=== PATIENT | male | born 1975 | race Caucasian/White ===

== ENCOUNTER 2021-02-15 16:36 | Emergency (ER) | payer OTHER, SELFPAY ==
[2021-02-15 17:24] VITALS: BP 159/108; PULSE 85; RESP 18; TEMP 36.8; O2SAT 97
--- NOTE | 2021-02-15 18:27 | ED_ITS ---
HPI - Wound/Laceration General Chief Complaint: Extremity Injury, Upper Stated Complaint: left hand injury Time Seen by Provider: 02/15/21 18:12 Source: patient Mode of arrival: ambulatory Limitations: no limitations History of Present Illness HPI narrative: 45-year-old male presenting to the ED with complaints of a laceration to his left and index finger while he was handling a clothing rack and came down and hit his finger prior to arrival. He reports he is up-to-date on tetanus received his tetanus less than 5 years ago. Denies any other symptoms complaints or concerns at this time. Onset (ago): minute(s) (Prior to arrival) Extremity Location: left: hand (Index finger) Place: work Patient tetanus UTD: Yes Context: accidental Associated symptoms: none Related Data Previous Rx's Medication Instructions Recorded cephalexin 500 mg capsule 500 mg PO Q6H 10 Days #40 cap 02/15/21 Allergies Allergy/AdvReac Type Severity Reaction Status Date / Time No Known Allergies Allergy Verified 02/15/21 17:23 Review of Systems Review of Systems: Constitutional : No Fever, No Chills, Cardiovascular : No Chest Pain, No SOB Respiratory : No Dyspnea Gastrointestinal : No abdominal pain Musculoskeletal : No Joint Swelling Skin : positive skin laceration, No Foreign bodies, No rash, No surrounding erythema Neuro : No Weakness, No Numbness/tingling Psych : No SI/HI/thoughts of self injury Yes all other systems are reviewed and are negative [facility] Past Medical History Attestation statement: The following information was validated with the patient. Social History Social History Advance Directives: No Advance Directives Information Provided: No Physical Exam Vital Signs: Vital Signs: Last Vital Signs Temp 98.3 F 02/15/21 17:24 Pulse 85 02/15/21 17:24 Resp 18 02/15/21 17:24 BP 159/108 H 02/15/21 17:24 Pulse Ox 97 02/15/21 17:24 Body Mass Index 0.2 vital signs have been reviewed as normal and appeared to be correct. Blood pressure hypertensive 159/108 heart rate normal. Respiration rate normal. Temperature normal. Oxygen saturation normal. Appearance: Alert. Oriented X3. No acute distress. Head: Normal external exam. Normocephalic. Atraumatic. Eyes: PERRLA. EOMI. Conjunctiva and sclera normal. Eyelids normal. ENT: Pharynx normal. Uvula midline. Moist mucous membranes. Neck: Normal inspection. Neck supple. FROM. CVS: Normal heart rate and rhythm. Respiratory: No respiratory distress. Painless inspiration. Skin: Skin warm and dry. Normal skin color. Normal skin turgor. No rashes/lesions/lacerations noted. Extremities: Patient with a superficial 1 cm laceration to his left hand index finger at the proximal aspect no foreign bodies or bony tenderness. Otherwise all other extremities exhibit normal range of motion and nontender. Neuro: Oriented X 3. No motor deficit. No sensory deficit. Reflexes normal. Normal steady gait. No focal neuro deficits noted. Vascular: + radial pulses/+ 2 distal pedal pulses/+2 dorsalis pedis b/l. Normal cap refill. No cyanosis noted to upper extremity nails and lower extremity toes nails. Course Course Course Narrative: Patient now status post laceration repair with Dermabond. Patient tolerated procedure well. No complications. Tetanus is updated therefore do not need to update today. Will DC home with antibiotics and instructions return if any new or worsening symptoms to follow up with [facility]. Patient understands agrees with this plan. MDM - Wound/Laceration Medical Records Attestation: I reviewed the patient's medical records. Discharge Plan Discharge Clinical Impression: Laceration of finger, Work related injury Patient Disposition: Home, Self-Care Instructions: Laceration Without Closure (ED), Return to Work Instructions (ED) Prescriptions: New cephalexin 500 mg capsule 500 mg PO Q6H 10 Days Qty: 40 RF: 0 Referrals: [facility] [Provider Group] - 1 day Stand Alone Forms: Work/School Release Print Language: Maldivian
--- NOTE | 2021-02-15 19:05 | PC.NURSE ---
LEFT POINTER FINGER CLEANED AND DERMABOND APPLIED BY BRENDA HERNDON.
== END 2021-02-15 19:06 | disposition home or self-care (01) ==
PROVIDERS: Emergency Provider Emergency Medicine
DX: S61.211A Laceration without foreign body of left index finger without damage to nail, initial encounter (principal); W26.8XXA Contact with other sharp object(s), not elsewhere classified, initial encounter; Y93.9 Activity, unspecified; Y92.89 Other specified places as the place of occurrence of the external cause; Y99.0 Civilian activity done for income or pay
CPT/HCPCS: 12001; 99283